=== PATIENT | female | born 1940 | race Two or more races ===

== ENCOUNTER 2017-02-16 16:04 | Emergency (ER) | payer MEDICARE ==
[~2017-02-16] VITALS: Ht 160 cm; Wt 58.3 kg
[2017-02-16] MEDS ORDERED: SODIUM CHLORIDE 0.9% 1,000ML IVBOLUS ONE (16:30)
[2017-02-16] MEDS ORDERED: SODIUM CHLORIDE FLUSH 10ML SYR IVF ONE (16:30)
[2017-02-16 16:52] LABS: BLOOD UREA NITROGEN 15 mg/dL (7-18)
[2017-02-16 16:59] LABS: IS PT STATUS REG ER OR PRE ER? YES
[2017-02-16 19:12] VITALS: BP 113/57
== END 2017-02-16 19:15 | disposition home or self-care (01) ==
LOC: ED 19:09
DX: M79.1 Myalgia (principal); D64.9 Anemia, unspecified; R70.0 Elevated erythrocyte sedimentation rate
CPT/HCPCS: 36415; 71020; 80048; 81001; 82040; 84436; 84443; 84484; 85025; 85651; 87086; 93005; 99285

== ENCOUNTER 2017-03-01 15:46 | Emergency (ER) | payer MEDICARE ==
[~2017-03-01] VITALS: Ht 160 cm; Wt 57.2 kg
[2017-03-01] MEDS ORDERED: ONDANSETRON 2MG/ML, 2ML IVPush ONE (16:00)
[2017-03-01] MEDS ORDERED: SODIUM CHLORIDE FLUSH 10ML SYR IVF ONE (16:00)
[2017-03-01] MEDS ORDERED: MORPHINE SULFATE 4 MG/ML, 1ML IVPush PRN (16:00)
[2017-03-01] MEDS ORDERED: SODIUM CHLORIDE 0.9% 1,000ML IVBOLUS ONE (16:00)
[2017-03-01] MEDS ORDERED: ACETAMINOPHEN 325 MG TABLET PO ONE (16:30)
[2017-03-01 16:50] LABS: BLOOD UREA NITROGEN 16 mg/dL (7-18)
[2017-03-01] MEDS ORDERED: ACETAMINOPHEN 325 MG TABLET ONE (16:51)
[2017-03-01 17:55] VITALS: BP 112/78
== END 2017-03-01 17:58 | disposition home or self-care (01) ==
LOC: ED 17:52
DX: R51 Headache (principal); M79.1 Myalgia
CPT/HCPCS: 36415; 70450; 80048; 82040; 82550; 85025; 99285

== ENCOUNTER 2020-11-03 17:05 | Inpatient (IN) | payer MEDICARE ==
[~2020-11-03] VITALS: Ht 152.4 cm; Wt 63.3 kg
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
[2020-11-03] MEDS ORDERED: ONDANSETRON ODT 4 MG ONE (17:58)
[2020-11-03] MEDS ORDERED: HYDROcodone/APAP 5/325 TABLET ONE (17:59)
[2020-11-03] MEDS ORDERED: HYDROcodone/APAP 5/325 TABLET PO ONE (18:00)
[2020-11-03] MEDS ORDERED: ONDANSETRON ODT 4 MG PO ONE (18:00)
--- NOTE | 2020-11-03 18:02 | NUR ---
PT BACK FROM XRAY. 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
--- NOTE | 2020-11-03 18:10 | NUR ---
ALL RESULTS ARE BACK AT THIS TIME. CHART UP FOR RECHECK.
--- NOTE | 2020-11-03 18:30 | NUR ---
PT GOING TO CT
--- NOTE | 2020-11-03 19:11 | NUR ---
ALL RESULTS ARE BACK AT THIS TIME. CHART UP FOR RECHECK.
--- NOTE | 2020-11-03 19:44 | NUR ---
FIDEL RN: INFO FAXED TO [facility] FOR TLSO BRACE. SPOKE JASPER MUHAMMAD AT [facility]. DR GREGORY OKYAED PATIENT TO GET BRACE IN THE AM. JB AWARE.
--- NOTE | 2020-11-03 19:47 | NUR ---
PIV PLACED. [facility] WILL FIT PT FOR TSLO BRACE IN AM.
--- NOTE | 2020-11-03 19:48 | NUR ---
TP RN: CALLED [facility] ATT[facility]. RN AWARE THAT PATIENT WILL GET A TLSO BRACE IN THE AM.
[2020-11-03 19:52] LABS: BASOPHILS % (AUTO) 1 % (0-1); EOSINOPHILS % (AUTO) 2 % (1-7); LYMPHOCYTES % (AUTO) 23 % (22-44); MD NO; MEAN CORPUSCULAR HEMOGLOBIN 29.1 pg (27.0-34.8); MEAN CORPUSCULAR HGB CONC 33.3 g/dL (32.4-35.8); MEAN PLATELET VOLUME 8.5 fL (7.4-10.4); MONOCYTES % (AUTO) 9 % (2-9); NEUTROPHILS % (AUTO) 66 % (42-75); PLATELET COUNT 218 x10^3/uL (130-400); RED BLOOD COUNT 4.22 x10^6/uL (3.82-5.3); RED CELL DISTRIBUTION WIDTH 13.6 % (9.6-15.2)
--- NOTE | 2020-11-03 19:55 | NUR ---
REPORT GIVEN TO SHARON OVIEDO. PT RTG TO ROOM [id number]
[2020-11-03 20:00] LABS: ALBUMIN 3.1 g/dL (3.4-5.0); ANION GAP 7 mmol/L (5-15); CALCIUM 8.1 mg/dL (8.5-10.1); CHLORIDE 108 mmol/L (98-107); CREATININE 0.92 mg/dL (0.55-1.02)
[2020-11-03] MEDS ORDERED: ONDANSETRON 2MG/ML, 2ML IVPush PRN (21:30)
[2020-11-03] MEDS ORDERED: ENALAPRILAT 1.25 MG/ML, 2ML IVPush PRN (21:30)
[2020-11-03] MEDS ORDERED: DOCUSATE 100 MG CAPSULE PO PRN (21:30)
[2020-11-03] MEDS ORDERED: LIDODERM 5% PATCH TD PRN (21:30)
[2020-11-03] MEDS ORDERED: MELATONIN 5 MG TABLET PO PRN (21:30)
[2020-11-03] MEDS ORDERED: ACETAMINOPHEN 325 MG TABLET PO PRN (21:30)
[2020-11-03 21:57] VITALS: BP 141/53
[2020-11-04 03:28] VITALS: BP 130/69
[2020-11-04 06:09] LABS: ANION GAP 6 mmol/L (5-15); CALCIUM 8.1 mg/dL (8.5-10.1); CHLORIDE 108 mmol/L (98-107); CREATININE 0.69 mg/dL (0.55-1.02)
[2020-11-04 06:11] LABS: BASOPHILS % (AUTO) 1 % (0-1); EOSINOPHILS % (AUTO) 2 % (1-7); LYMPHOCYTES % (AUTO) 29 % (22-44); MEAN CORPUSCULAR HEMOGLOBIN 29.2 pg (27.0-34.8); MEAN PLATELET VOLUME 8.7 fL (7.4-10.4); MONOCYTES % (AUTO) 11 % (2-9); NEUTROPHILS % (AUTO) 58 % (42-75); PLATELET COUNT 216 x10^3/uL (130-400); RED BLOOD COUNT 4.34 x10^6/uL (3.82-5.3); RED CELL DISTRIBUTION WIDTH 13.3 % (9.6-15.2)
[2020-11-04 06:29] LABS: MD NO
[2020-11-04 07:38] VITALS: BP 122/67
[2020-11-04] MEDS: HYDROcodone/APAP 5/325 TABLET PO PRN (11:27)
[2020-11-04 13:43] VITALS: BP 108/58
[2020-11-04 20:15] VITALS: BP 115/56
[2020-11-05 00:53] VITALS: BP 116/56
[2020-11-05 08:03] VITALS: BP 132/70
[2020-11-05] MEDS: HYDROcodone/APAP 5/325 TABLET PO PRN ×2 (09:40→17:27)
[2020-11-05] MEDS ORDERED: ENOXAPARIN 40 MG/0.4 ML SQ SCH (13:30)
[2020-11-05 14:04] VITALS: BP 123/68
[2020-11-05] MEDS ORDERED: HYDR-1067 PO (17:42)
[2020-11-05] MEDS ORDERED: LIDO700A20 TD (17:42)
[2020-11-05 18:04] VITALS: BP 126/64
== END 2020-11-05 18:56 | disposition home health service (06) | DRG 552 ==
LOC: ED 19:53 → EDIP 20:19 → 4NE 20:25
PROVIDERS: ADMIT Family Medicine; ATTEND Internal Medicine
DX: S32.059A Unspecified fracture of fifth lumbar vertebra, initial encounter for closed fracture (principal); S32.501A Unspecified fracture of right pubis, initial encounter for closed fracture; S32.019A Unspecified fracture of first lumbar vertebra, initial encounter for closed fracture; W01.0XXA Fall on same level from slipping, tripping and stumbling without subsequent striking against object, initial encounter; Y93.01 Activity, walking, marching and hiking; Y92.89 Other specified places as the place of occurrence of the external cause; Y99.8 Other external cause status; M43.16 Spondylolisthesis, lumbar region; I10 Essential (primary) hypertension; Z85.3 Personal history of malignant neoplasm of breast; R73.9 Hyperglycemia, unspecified
CPT/HCPCS: 36415; 72110; 72131; 72148; 72190; 80048; 82040; 85025; 99285; G0378; J1650; J2405; Q0162